=== PATIENT | female | born 1975 | race Two or more races ===

== ENCOUNTER 2024-08-15 22:18 | Emergency (ER) | payer MEDICAID, SELFPAY ==
[2024-08-15 22:19] VITALS: BMI 31.1
--- NOTE | 2024-08-15 22:28 | EKG_ITS ---
[facility] Test Date: 2024-08-15 Pat Name: PB JIMENEZ Department: Room: - Gender: Female [employer]: : 1975 Requested By: Adam Vilchis Order Number: [id number] Reading MD: Adam Vilchis Measurements Intervals [place] Rate: 74 P: 23 SD: 131 QRS: 24 QRSD: 90 T: 37 QT: 404 QTc: 448 Interpretive Statements SINUS RHYTHM POSSIBLE INFERIOR MYOCARDIAL INFARCTION , PROBABLY OLD [30 ms Q WAVE IN II/aVF] No previous ECG available for comparison /[id number]/[email or web address]/[id number].pdf
[2024-08-15 22:31] VITALS: BP 155/85; PULSE 75; RESP 18; TEMP 36.8; O2SAT 99
--- NOTE | 2024-08-15 23:05 | EDNOTE_ITS ---
ED Dizzyness RME/HPI General Chief Complaint: Dizziness Stated Complaint: DIZZINESS, N/V X 2DAYS Time Seen by Provider: 08/15/24 22:42 Arrival date/time: 08/15/24 22:18 RME / HPI RME / HPI Narrative: This section includes all my notes and documentations, including HPI, PE, and ED course. Suleiman Castaneda MD HPI: 49yo female with a history of anemia presents to the ED for a chief complaint of dizziness since yesterday morning. Patient states it feels like her head and surrounding is spinning. She reports associated N/V today. She reports left ear pain. She denies any fever, chills, cough or any other associated symptoms. Denies any tobacco or alcohol use. No other complaints reported. ROS: All negative except as documented in HPI. Physical Exam: General: Alert and oriented. Appears uncomfortable. Eyes: Conjunctivae and lids clear. ENT: No nasal congestion. Pharynx normal. Left TM and auditory canal erythematous. Neck: Supple. Heart: RRR. Lungs: No respiratory distress. Good air movement. No rhonchi, wheezing, r ales. Skin: Warm and dry. Neuro: Alert and oriented X 3. Cranial nerves II to XII grossly normal. No peripheral motor deficits. I reviewed all diagnostic test results. My interpretation of the EKG is normal sinus rhythm, rate of 74, no acute ischemia. My review of the CT head report is unremarkable, except left otitis externa. Blood tests and urine tests are unremarkable. At this point, diagnoses include Vertigo and Infection of left ear. Treatment here included Meclizine, Zofran, and Scopolamine. Significant improvement noted. Recommend outpatient treatment. Based on my best medical judgment, made decision no further evaluation or treatment indicated at this time. Patient understands and agrees to the discharge instructions customized and printed, see below. Discharge instructions from Dr. Castaneda: ? After extensive evaluation, there is no life-threatening condition. Such as stroke or brain tumor or heart attack. -- Your severe symptoms are due to vertigo. This is an ear problem that makes you feel like you are drunk or seasick. See attached handout. -- Use scopolamine patch and/or meclizine for your severe symptoms. -- And Zofran for nausea/vomiting. And increase oral fluid to prevent dehydration. Maintain clear urine. If dark or yellow, increase oral fluid. -- And do everything very slowly. Including moving your head. And when you sit up or stand up, wait a minute before you progress. --For the left ear infection, use the eardrops and take Augmentin as prescribed. -- See your private doctor next week if not completely better. If needed, ask to help you get more care not available here in the ER. Such as MRI imaging of your brain, physical therapy, table tilt test, and referrals to see specialists (such as neurologist and ENT specialist). -- Seek immediate medical care with worsening or with any concerns. Suleiman Castaneda MD Related Data Previous Rx's ?Medication ?Instructions ?Recorded amoxicillin 875 mg-potassium 1 tab PO BID #10 tabs 03/02 clavulanate 125 mg tablet meclizine 25 mg tablet 25 mg PO BID PRN dizziness # 20 tabs 08/16/24 [id number] 3.3 4 drp otic (ear) QID 7 days #10 mL 08/16/24 mg-3 mg-10 mg-0.5 mg/mL ear drops,susp (Cortisporin-TC) ondansetron 4 mg disintegrating 4 mg PO TID PRN nausea and 08/16/24 tablet vomiting 30 days #10 tabs scopolamine base 1 mg over 3 days 1 mg topical .q72 ho urs PRN 08/16/24 transdermal patch (Transderm-Scop) dizziness or vertig o #4 ea Allergies Allergy/AdvReac Type Severity Reaction Status Date / Time No Known Allergies Allergy Verified 08/15/24 22:20 Review of Systems Review of Systems Systems Reviewed: All systems reviewed, normal except as documented Past Medical History Social History SMOKING STATUS: Never smoker ED Exam Narrative Physical exam: As noted in HPI. Course Quality Measures none Orders Category Date Time Status EKG (ED ONLY) *Do not use* NOW Care 08/15/24 22:[address] head/brain wo con Stat Exams 08/15/24 23:08 Completed EKG (ED Only) Stat Exams 08/15/24 22:28 Draft CBC Stat Lab 08/15/24 23:43 Completed CMP [Comprehensive Metabolic Panel] Stat Lab 08/15/24 23:43 Completed Free T4 (Free Thyroxine) Stat Lab 08/15/24 23:43 Completed HCG Qualitative,Urine Stat Lab 08/15/24 23:33 Completed HCG,Qualitative Serum Stat Lab 08/15/24 23:43 Completed Magnesium Stat Lab 08/15/24 23:43 Completed TSH [Thyroid Stimulating Hormone] Stat Lab 08/15/24 23:43 Completed Troponin I Stat Lab 08/15/24 23:43 Completed UA, C/S IF [Urinalysis, C/S if Indicated] Stat Lab 08/15/24 23:33 Completed Meclizine HCl [Antivert] Med 08/15/24 23:07 Discontinued 25 mg PO X1 ONE Ondansetron Odt [Zofran Odt] Med 08/15/24 23:07 Discontinued 4 mg PO X1 ONE Scopolamine [Transderm-Scop Patch] Med 08/15/24 23:07 Discontinued 1 mg TOP X1 ONE Vital Signs Vital signs: Vital Signs Temperature 98.3 F 08/15/24 22:31 Pulse Rate 75 08/15/24 22:31 Respiratory Rate 18 08/15/24 22:31 Blood Pressure 155/85 H 08/15/24 22:31 Pulse Oximetry (%) 99 08/15/24 22:31 Dizziness MDM Narrative MDM Narrative:: Scribe Attestation: 08/15/24 - Ronit Gaming am scribing for and in the presence of Dr. Castaneda. Patient data External records reviewed:: [facility] previous records (Per chart review, patient has no previous ED visits or admissions to this facility.) Clinical information provided by:: patient Social determinants that could affect healthcare access:: none Patient has the following chronic illnesses:: none How is presenting disease/condition affected by chronic disease/condition?: no chronic disease Evaluation data The following diagnostics were reviewed and interpreted by me:: lab results, radiology exam(s) and EKG tracing(s) (EKG done at 2336, NSR, rate of 74, normal axis, normal intervals, no acute ischemia) Lab and/or radiology exams considered but not ordered:: none Interpretation Summary: Vertigo, Infection of left ear Medications / Prescriptions Medications or Prescriptions considered but not ordered:: none Medication administrations:: Medication Administration History Discontinued Medications Meclizine HCl (Meclizine Hcl 25 Mg Tablet) 25 mg PO X1 ONE Stop: 08/15/24 23:08 Last Admin: 08/15/24 23:30 Dose: 25 mg Documented By: BILLY Ondansetron HCl (Ondansetron Odt 4 Mg Tabrap) 4 mg PO X1 ONE; Protocol Stop: 08/15/24 23:08 Last Admin: 08/15/24 23:30 Dose: 4 mg Documented By: BILLY Scopolamine (Scopolamine 1 Mg Tdsy) 1 mg TOP X1 ONE Stop: 08/15/24 23:08 Last Admin: 08/15/24 23:31 Dose: 1 mg Documented By: BILLY Meclizine, Zofran, Scopolamine Consultations Consultation(s) initiated? (list below): No Diagnosis Dizziness Differential Diagnosis: adverse reaction to drug, benign paroxysmal positional vertigo, orthostatic hypotension, vertebral basilar insufficiency, cerebrovascular accident, acute vestibular neuronitis and transient cerebral ischemia Most likely diagnosis given after review of the tests above:: Vertigo, Infection of left ear Admission Indicated Admission indicated?: not indicated Explain why admission is indicated or not indicated:: With significant improvement, there was no indication for admission. Admission Request Was there a request for admission?: No Disposition Plan Disposition Plan: Discharge Discharge Attestation Discharge Attestation: The patient and all family members were given an opportunity to ask questions and understood the discharge instructions. Discharge instructions specifically effects, indications for sooner follow up or return to the emergency department, and the expected course of current diagnosis. Patient condition: Stable Discharge Plan Plan Patient Disposition: HOME (Self Care) Prescriptions/Referrals Prescriptions/Med Rec: New Cortisporin-TC 3.3-3-10-0.5 mg/mL drops,suspension 4 drp otic (ear) QID 7 Days Qty: 10 0RF meclizine 25 mg tablet 25 mg PO BID PRN (Reason: dizziness) Qty: 20 0RF scopolamine base [Transderm-Scop] 1 mg over 3 days patch 3 day 1 mg topical .q72 hours PRN (Reason: dizziness or vertigo) Qty: 4 0RF ondansetron 4 mg tablet,disintegrating 4 mg PO TID PRN (Reason: nausea and vomiting) 30 Days Qty: 10 0RF amoxicillin-pot clavulanate 875-125 mg tablet 1 tab PO BID Qty: 10 0RF Referrals: Temporary Provider,ED [Physician] - In 1 week Problem List Clinical Impression: Vertigo, Infection of left ear Patient/Caregiver Discharge Instructions Discharge Activity: activity as tolerated Education Materials: ED Otitis Media Antibiotic ..., ED Vertigo, Unspecified, ED External Ear Infection (Adult) Additional Instructions: Discharge instructions from Dr. Castaneda: ? After extensive evaluation, there is no life-threatening condition.? Such as stroke or brain tumor or heart attack. -- Your severe symptoms are due to vertigo.? This is an ear problem that makes you feel like you are drunk or seasick.? See attached handout. -- Use scopolamine patch and/or meclizine for your severe symptoms. -- And Zofran for nausea/vomiting.? And increase oral fluid to prevent dehydration.? Maintain clear urine.? If dark or yellow, increase oral fluid. -- And do everything very slowly.? Including moving your head.? And when you sit up or stand up, wait a minute before you progress.? --For the left ear infection, use the eardrops and take Augmentin as prescribed. -- See your private doctor next week if not completely better. If needed, ask to help you get more care not available here in the ER.? Such as MRI imaging of your brain, physical therapy, table tilt test, and referrals to see specialists (such as neurologist and ENT specialist). -- Seek immediate medical care with worsening or with any concerns. Print Language: Iranian Stand Alone Forms: [facility] Award Info., Patient Portal Info Letter
--- NOTE | 2024-08-15 23:08 | XR_ITS ---
Examination: CT brain head without contrast. 2-D sagittal coronal reconstructions Date and time of exam:August 15, 2024 11:12 PM Indications: Onset dizziness nausea vomiting beginning 2 days ago CTDI: vol (mGy):47.5 DLP: (mGycm):906 Technique: Multiple CT axial sections of the brain have been obtained, 5 mm slice thickness. Contrast has not been administered. 2-D sagittal, coronal reconstructions have been obtained Low dose protocols were performed. One or more of the following dose reduction techniques were used; automated exposure control, adjustment of the mA and/or KV according to patient size, use of iterative reconstruction technique. Findings: No significant ventricular enlargement. Intra-axial or extra-axial hemorrhage density is not seen. No mass effect or midline shift Basal cisterns are not remarkable. Fourth ventricle is midline. Cranial vault intact. Left otitis externa Impression: Negative for acute hemorrhage, mass effect or midline shift If symptoms persist, consider brain MRI follow-up Left otitis externa
[2024-08-15] MEDS: MECLIZINE HCL 25 MG TABLET PO (23:30)
[2024-08-15] MEDS: ONDANSETRON ODT 4 MG TABRAP PO (23:30)
[2024-08-15] MEDS: SCOPOLAMINE 1 MG TDSY TOP (23:31)
[2024-08-15 23:49] LABS: Collection Type, Urine Clean Catch; RBC,Urine 0 /hpf (0-3); WBC,Urine 0 /hpf (0-5)
[2024-08-16 00:04] LABS: Basophils # (Auto) 0.1 Thou/mm3 (0.0-0.2); Basophils % (Auto) 1 % (0-2.5); Eosinophils # (Auto) 0.1 Thou/mm3 (0.0-0.5); Eosinophils % (Auto) 1 % (0-10); Hematocrit 40.5 % (36.0-46.0); Hemoglobin 13.9 g/dL (12.0-16.0); Immature Granulocytes % (Auto) 0 % (0-0); Immature Granulocytes Auto 0.06 Thou/mm3 (0.00-0.00); Lymphocytes # (Auto) 3.1 Thou/mm3 (1.0-4.8); Lymphocytes % (Auto) 22 % (10-50); Mean Corpuscular HGB Conc 34.3 g/dl (31.0-37.0); Mean Corpuscular Hemoglobin 28.7 pg (25.0-35.0); Mean Corpuscular Volume 84 fL (80-100); Monocytes # (Auto) 0.9 Thou/mm3 (0.0-0.8); Monocytes % (Auto) 6 % (0-12); Neutrophils % (Auto) 70 % (37-80); Nucleated Red Blood Cell % 0 /100 WBC (0); Platelet Count 333 Thou/mm3 (140-440); RDW Standard Deviation 42.8 fL (36.4-46.3); Red Blood Count 4.85 Miln/mm3 (4.00-5.20); White Blood Count 14.2 Thou/mm3 (3.6-11.0)
[2024-08-16 00:19] LABS: Alanine Aminotransferase 13 U/L (10-49); Albumin, Serum 4.7 gm/dL (3.5-5.0); Albumin/Globulin Ratio 1.4 (1.2-2.2); Alkaline Phosphatase 76 U/L (46-116); Anion Gap 11 (7-16); Aspartate Amino Transferase 17 U/L (0-34); BUN/Creatinine Ratio 19 Ratio (12-20); Bilirubin,Total 0.6 mg/dL (0.3-1.2); Blood Urea Nitrogen 17 mg/dL (9-23); Calcium 10.3 mg/dL (8.3-10.6); Calcium (Corrected) 10.3 mg/dL (8.5-10.1); Carbon Dioxide 26.5 mMol/L (20.0-31.0); Chloride 101 mMol/L (98-107); Creatinine (Component) 0.9 mg/dL (0.6-1.3); Estimated Creatinine Clearance 74.3 mL/min (>60); Free T4 (Free Thyroxine) 1.25 ng/dL (0.89-1.76); Globulin 3.4 gm/dL (2.3-3.5); Glucose 132 mg/dL (74-106); Magnesium 2.1 mg/dL (1.6-2.6); Osmolality,Calculated 279 (275-295); Sodium 138 mMol/L (136-145); Thyroid Stimulating Hormone 1.51 uIU/mL (0.55-4.78); Total Protein 8.1 gm/dL (5.7-8.2); Troponin I < 0.002 ng/mL (0.0-0.045); eGFR > 60 See Note
[2024-08-16 00:21] LABS: Bacteria,Urine Rare; Bilirubin,Urine Negative (Negative); Blood,Urine Negative (Negative); Clarity,Urine Clear (Clear/Hazy); Color,Urine Lt-Yellow (Lt Yel-Yel); Culture Indicated,Urine Not Indicated; Glucose, Urine Negative (Negative); Ketones,Urine Negative (Negative); Leukocyte Esterase,Urine Negative (Negative); Nitrite,Urine Negative (Negative); PH,Urine 8.5 (5.0-7.0); Protein,Urine 1+ (Neg - Trace); Specific Gravity,Urine 1.028 (1.001-1.035); Squamous Epithelial Cell,Urine 2 /hpf (0-5); Urobilinogen,Urine Negative mg/dL (0.0-1.0)
[2024-08-16 00:23] LABS: HCG,Qualitative Serum Negative
[2024-08-16 00:26] LABS: HCG Qualitative,Urine Negative
[2024-08-16 00:41] VITALS: BP 142/76; PULSE 80; RESP 16; TEMP 36.6; O2SAT 98
== END 2024-08-16 00:43 | disposition home or self-care (01) ==
PROVIDERS: Emergency Provider Emergency Medicine; PCP Family Medicine
DX: H66.92 Otitis media, unspecified, left ear (principal)
CPT/HCPCS: 36415; 70450; 80053; 81001; 81025; 83735; 84439; 84443; 84484; 84703; 85025; 93005; 99284; Q0162; A9270